=== PATIENT | female | born 1985 | race Caucasian/White ===

== ENCOUNTER → 2017-03-18 | Outpatient (CLI) | payer OTHER | LOC: LAB 10:53 | DX: Z00.00 Encounter for general adult medical examination without abnormal findings (principal) ==

== ENCOUNTER → 2020-05-30 | Outpatient (CLI) | payer OTHER ==
[2020-05-30 15:08] LABS: EOS # 0.2 (0.04-0.40); EOS % 3.2 % (1.0-5.0); HEMATOCRIT 41.9 % (37.0-47.0); HEMOGLOBIN 13.9 g/dL (12.5-16.0); LYMPH# 2.7 (1.50-4.00); MEAN CELL VOLUME 94 fl (78-100); MEAN CORPUSCULAR HEMOGLOBIN 31 pg (27-31); MEAN CORPUSCULAR HGB CONC 33 g/dL (33-37); MEAN PLATELET VOLUME 9.5 fl (7.4-10.4); MONO # 0.5 (0.20-0.80); NEU # 3.4 (1.40-6.50); PLATELET COUNT 294 K/mm3 (130-400); RED BLOOD COUNT 4.47 M/mm3 (4.10-5.30); WHITE BLOOD COUNT 6.8 K/mm3 (4.8-10.8)
[2020-05-30 15:17] LABS: ALBUMIN 4.6 g/dL (3.5-5.0); POTASSIUM 3.6 mmol/L (3.5-5.1)
[2020-05-30 15:18] LABS: CALCIUM 9.3 mg/dL (8.3-10.5)
[2020-05-30 15:19] LABS: TOTAL PROTEIN 8.1 g/dL (6.4-8.3)
[2020-05-30 15:21] LABS: TOTAL BILIRUBIN 0.7 mg/dL (0.2-1.2)
[2020-05-30 15:26] LABS: MAGNESIUM 2.17 mg/dL (1.60-2.60)
[2020-05-30 15:48] LABS: URINE APPEARANCE CLEAR; URINE COLOR LIGHT YELLOW
[2020-05-30 15:51] LABS: PH-URINE 5.5 (5.0 - 8.0); URINE BILIRUBIN NEGATIVE (NEGATIVE); URINE BLOOD NEGATIVE (NEGATIVE); URINE GLUCOSE NEGATIVE (NEGATIVE); URINE KETONE NEGATIVE (NEGATIVE); URINE LEUKOCYTE ESTERASE NEGATIVE (NEGATIVE); URINE NITRATE NEGATIVE (NEGATIVE); URINE PROTEIN(semi-quant) NEGATIVE (NEGATIVE); URINE UROBILINOGEN NORMAL (NORMAL); URINE WBC 0-1 /hpf (0-3)
[2020-05-30 15:59] LABS: ERYTHROCYTE SEDIMENTATION RATE 25 mm/hr (0-20)
== END ==
LOC: LAB 14:49
PROVIDERS: Internal Medicine
DX: Z00.00 Encounter for general adult medical examination without abnormal findings (principal)

== ENCOUNTER → 2020-06-26 | Outpatient (CLI) | payer OTHER | LOC: LAB 16:08 | DX: R79.0 Abnormal level of blood mineral (principal) ==

== ENCOUNTER → 2021-07-11 | Outpatient (CLI) | payer BC, OTHER | LOC: LAB 12:19 | DX: U07.1 COVID-19 (principal) ==

== ENCOUNTER → 2021-09-24 | Outpatient (CLI) | payer BC, OTHER ==
[2021-09-24 12:18] LABS: BASO # 0.03 K/mm3 (0.02-0.10); EOS # 0.12 K/mm3 (0.04-0.40); EOS % 1.4 % (1.0-5.0); HEMOGLOBIN 13.2 g/dL (12.5-16.0); LYMPH# 3.04 K/mm3 (1.50-4.00); MEAN CELL VOLUME 98 fl (78-100); MEAN CORPUSCULAR HEMOGLOBIN 32 pg (27-31); MEAN CORPUSCULAR HGB CONC 32 g/dL (33-37); MEAN PLATELET VOLUME 10.1 fl (7.4-10.4); MONO # 0.39 K/mm3 (0.20-0.80); NEU # 5.21 K/mm3 (1.40-6.50); PLATELET COUNT 281 K/mm3 (130-400); RED BLOOD COUNT 4.18 M/mm3 (4.10-5.30); RED CELL DISTRIBUTION WIDTH 12.6 % (11.5-14.5); WHITE BLOOD COUNT 8.8 K/mm3 (4.8-10.8)
[2021-09-24 12:44] LABS: ALBUMIN 4.1 g/dL (3.5-5.0); POTASSIUM 4.9 mmol/L (3.5-5.1)
[2021-09-24 12:46] LABS: CALCIUM 9.5 mg/dL (8.3-10.5)
[2021-09-24 12:47] LABS: TOTAL PROTEIN 7.5 g/dL (6.4-8.3)
[2021-09-24 12:49] LABS: TOTAL BILIRUBIN 0.4 mg/dL (0.2-1.2)
== END ==
LOC: LAB 09:38 → RAD 09:38
PROVIDERS: Nurse Practitioner Family
DX: R05.3 Chronic cough (principal); R01.1 Cardiac murmur, unspecified; R53.83 Other fatigue; Z86.16 Personal history of COVID-19; Z87.898 Personal history of other specified conditions

== ENCOUNTER → 2021-10-26 | Outpatient (CLI) | payer BC, OTHER ==
[2021-10-26 09:53] LABS: BASO # 0.02 K/mm3 (0.02-0.10); EOS # 0.09 K/mm3 (0.04-0.40); EOS % 0.8 % (1.0-5.0); HEMOGLOBIN 13.3 g/dL (12.5-16.0); MEAN CELL VOLUME 95 fl (78-100); MEAN CORPUSCULAR HEMOGLOBIN 31 pg (27-31); MEAN CORPUSCULAR HGB CONC 33 g/dL (33-37); MEAN PLATELET VOLUME 9.3 fl (7.4-10.4); MONO # 0.49 K/mm3 (0.20-0.80); NEU # 6.72 K/mm3 (1.40-6.50); PLATELET COUNT 248 K/mm3 (130-400); RED BLOOD COUNT 4.23 M/mm3 (4.10-5.30); RED CELL DISTRIBUTION WIDTH 12.1 % (11.5-14.5); WHITE BLOOD COUNT 10.9 K/mm3 (4.8-10.8)
[2021-10-26 10:00] LABS: ALBUMIN 4.2 g/dL (3.5-5.0); POTASSIUM 4.7 mmol/L (3.5-5.1)
[2021-10-26 10:01] LABS: CALCIUM 9.7 mg/dL (8.3-10.5)
[2021-10-26 10:02] LABS: TOTAL PROTEIN 7.7 g/dL (6.4-8.3)
[2021-10-26 10:04] LABS: TOTAL BILIRUBIN 0.6 mg/dL (0.2-1.2)
[2021-10-26 10:47] LABS: D-DIMER 3.85 mg/L FEU (0.15-0.50)
== END ==
LOC: LAB 09:28 → RAD 09:28
PROVIDERS: Nurse Practitioner
DX: J43.9 Emphysema, unspecified (principal); R79.1 Abnormal coagulation profile; Q67.6 Pectus excavatum
CPT/HCPCS: Q9967

== ENCOUNTER → 2021-11-06 | Outpatient (CLI) | payer BC, OTHER ==
[2021-11-06 11:02] LABS: BASO # 0.01 K/mm3 (0.02-0.10); EOS # 0.02 K/mm3 (0.04-0.40); EOS % 0.2 % (1.0-5.0); HEMATOCRIT 41.4 % (37.0-47.0); HEMOGLOBIN 13.7 g/dL (12.5-16.0); LYMPH# 4.71 K/mm3 (1.50-4.00); MEAN CELL VOLUME 95 fl (78-100); MEAN CORPUSCULAR HEMOGLOBIN 32 pg (27-31); MEAN CORPUSCULAR HGB CONC 33 g/dL (33-37); MEAN PLATELET VOLUME 10.1 fl (7.4-10.4); MONO # 0.67 K/mm3 (0.20-0.80); NEU # 6.27 K/mm3 (1.40-6.50); PLATELET COUNT 282 K/mm3 (130-400); RED BLOOD COUNT 4.35 M/mm3 (4.10-5.30); WHITE BLOOD COUNT 11.7 K/mm3 (4.8-10.8)
[2021-11-06 11:11] LABS: ALBUMIN 4.4 g/dL (3.5-5.0); POTASSIUM 3.5 mmol/L (3.5-5.1)
[2021-11-06 11:12] LABS: CALCIUM 9.5 mg/dL (8.3-10.5)
[2021-11-06 11:14] LABS: TOTAL PROTEIN 7.6 g/dL (6.4-8.3)
[2021-11-06 11:16] LABS: TOTAL BILIRUBIN 0.5 mg/dL (0.2-1.2)
[2021-11-06 12:52] LABS: ERYTHROCYTE SEDIMENTATION RATE 19 mm/hr (0-20)
== END ==
LOC: LAB 09:52
PROVIDERS: Internal Medicine
DX: U07.1 COVID-19 (principal)

== ENCOUNTER → 2022-07-29 | Outpatient (CLI) | payer BC, OTHER ==
[2022-07-29 23:19] LABS: PROGESTERONE 0.1 ng/mL (())
[2022-07-29 23:31] LABS: FOLLICLE STIMULATING HORMONE 7.3 mIU/mL (()); LUTENIZING HORMONE 4.7 mIU/mL (())
== END ==
LOC: LAB 15:06
PROVIDERS: Internal Medicine
DX: N92.6 Irregular menstruation, unspecified (principal); K90.9 Intestinal malabsorption, unspecified; E53.8 Deficiency of other specified B group vitamins; E55.9 Vitamin D deficiency, unspecified

== ENCOUNTER → 2023-06-04 | Outpatient (CLI) | payer BC | LOC: RAD 13:00 | DX: N92.0 Excessive and frequent menstruation with regular cycle (principal) ==

== ENCOUNTER → 2023-07-03 | Outpatient (REF) | payer BC ==
[2023-07-03 18:25] LABS: CLUE CELLS OBSERVED (Not Observd)
== END ==
LOC: LAB 18:15
PROVIDERS: Nurse Practitioner Family
DX: R10.30 Lower abdominal pain, unspecified (principal)
CPT/HCPCS: Q0111

== ENCOUNTER → 2023-07-23 | Outpatient (CLI) | payer BC | LOC: RAD 11:08 | DX: N92.0 Excessive and frequent menstruation with regular cycle (principal) ==

== ENCOUNTER → 2024-06-22 | Outpatient (CLI) | payer BC ==
[2024-06-22 16:33] LABS: BASO # 0.02 K/mm3 (0.02-0.10); EOS # 0.07 K/mm3 (0.04-0.40); EOS % 0.9 % (1.0-5.0); HEMATOCRIT 41.3 % (37.0-47.0); HEMOGLOBIN 13.8 g/dL (12.5-16.0); MEAN CELL VOLUME 94 fl (78-100); MEAN CORPUSCULAR HEMOGLOBIN 32 pg (27-31); MEAN CORPUSCULAR HGB CONC 33 g/dL (33-37); MEAN PLATELET VOLUME 9.2 fl (7.4-10.4); MONO # 0.35 K/mm3 (0.20-0.80); NEU # 4.42 K/mm3 (1.40-6.50); PLATELET COUNT 264 K/mm3 (130-400); RED BLOOD COUNT 4.38 M/mm3 (4.10-5.30); RED CELL DISTRIBUTION WIDTH 11.9 % (11.5-14.5); WHITE BLOOD COUNT 7.4 K/mm3 (4.8-10.8)
[2024-06-22 16:38] LABS: ALBUMIN 4.9 g/dL (3.5-5.0)
[2024-06-22 16:39] LABS: CALCIUM 9.9 mg/dL (8.3-10.5)
[2024-06-22 16:40] LABS: TOTAL PROTEIN 8.2 g/dL (6.4-8.3)
[2024-06-22 16:42] LABS: TOTAL BILIRUBIN 0.6 mg/dL (0.2-1.2)
== END ==
LOC: LAB 16:11
PROVIDERS: Internal Medicine
DX: K90.9 Intestinal malabsorption, unspecified (principal); F32.A Depression, unspecified; E78.2 Mixed hyperlipidemia; R73.9 Hyperglycemia, unspecified; Z83.49 Family history of other endocrine, nutritional and metabolic diseases